=== PATIENT | male | born 1995 | race Caucasian/White ===

== ENCOUNTER 2016-08-13 17:47 | Emergency (ER) | payer SELFPAY ==
[~2016-08-13 17:47] MED LIST: ALBUTEROL17 GM; FLONASE16 GM; METFORMIN; SINGULAIR PO; ZADITOR EYE DROPS; ZYRTEC
== END 2016-08-13 17:50 | disposition left against medical advice (07) ==
LOC: CED 17:47
DX: Z53.21 Procedure and treatment not carried out due to patient leaving prior to being seen by health care provider (principal)
CPT/HCPCS: 82947